=== PATIENT | female | born 2000 | race Caucasian/White ===

== ENCOUNTER 2024-06-01 04:31 | Inpatient (IN) | payer OTHER ==
[2024-06-01] MEDS ORDERED: CARBOPROST TROMETHAMINE 250 MCG/ML 1 ML AMP IM PRN (04:41)
[2024-06-01] MEDS ORDERED: TERBUTALINE 1 MG/ML VIAL SQ PRN (04:41)
[2024-06-01] MEDS ORDERED: LIDOCAINE 0.5% (PF) 5 MG/ML (50 ML SDV) SQ PRN (04:41)
[2024-06-01] MEDS ORDERED: miSOPROStoL 200 MCG TAB PO PRN (04:41)
[2024-06-01] MEDS ORDERED: TRANEXAMIC 1,000 MG/100ML-NACL 1,000 MG in EMPTY BAG 1 BAG IV PRN (04:41)
[2024-06-01] MEDS ORDERED: METHYLERGONOVINE 0.2 MG/ML 1 ML AMP IM PRN (04:41)
[2024-06-01] MEDS ORDERED: OXYTOCIN 10 UNIT/ML 1 ML VIAL IM PRN (04:41)
[2024-06-01] MEDS ORDERED: miSOPROStoL 200 MCG TAB RECTAL PRN (04:41)
[2024-06-01] MEDS ORDERED: OXYTOCIN 30 UNITS/500 ML NS 30 UNIT in SALINE 1 500ML.BAG IV SCH ×2 (04:45→06:45)
[2024-06-01] MEDS: LACTATED RINGERS 1,000 ML IV SCH (04:59)
[2024-06-01 05:10] LABS: Basophils % (A) 0 %; Eosinophils # (A) 0.2 k/uL (0-0.7); Eosinophils % (A) 1 %; HGB 11.9 gm/dL (11.4-16.0); Lymphocytes # (A) 1.9 k/uL (1.0-4.8); Lymphocytes % (A) 10 %; MCH 28.5 pg (25.0-35.0); MCHC 32.2 g/dL (31.0-37.0); MCV 88.6 fL (80.0-100.0); Mean Platelet Volume 7.4; Monocytes # (A) 0.7 k/uL (0-1.0); Monocytes % (A) 4 %; Neutrophils # (A) 15.5 k/uL (1.3-7.7); Neutrophils % (A) 84 %; Platelet Count 219 k/uL (150-450); RBC 4.17 m/uL (3.80-5.40); RDW 12.8 % (11.5-15.5); WBC 18.6 k/uL (3.8-10.6)
[2024-06-01] MEDS: CITRIC ACID-SODIUM CITRATE 15 ML CUP PO ONE (05:37)
--- NOTE | 2024-06-01 05:44 | P.HPOB ---
History of Present Illness H&P Date: 06/01/24 Chief Complaint: Labor 24 year old presents at 40 weeks 2 days in labor. She is marlen every 2 minutes and her cervix is 5/100/-2. heart tones are 135 with moderate variability. no accels, there are variable decelerations with each contraction down to the 70's. Category II FHT managed following algorithm including initiation of corrective measure oxygen, IV fluids, position changes. With the persistent presence of deep variable deceleratins, a patient-centered huddle was held and the need for an expedited deliver was discussed with the patient. It is our clinical recommendation to proceed with the delivery and after questions were answered to the patient agrees to proceed with the recommended plan. Review of Systems All systems: negative Constitutional: Denies chills, Denies fever Eyes: denies blurred vision, denies pain Ears, nose, mouth and throat: Denies headache, Denies sore throat Cardiovascular: Denies chest pain, Denies shortness of breath Respiratory: Denies cough Gastrointestinal: Denies abdominal pain, Denies diarrhea, Denies nausea, Denies vomiting Genitourinary: Denies dysuria, Denies hematuria Musculoskeletal: Denies myalgias Integumentary: Denies pruritus, Denies rash Neurological: Denies numbness, Denies weakness Psychiatric: Denies anxiety, Denies depression Endocrine: Denies fatigue, Denies weight change Past Medical History Past Medical History: No Reported History Additional Past Medical History / Comment(s): OB history: She has had one vaginal delivery. This is her second and the baby has some skeletal anomalies like bilateral clubbed feet, clindactaly, thickened skin on the skull Past Surgical History: No Surgical Hx Reported Past Psychological History: No Psychological Hx Reported Medications and Allergies Home Medications Medication Instructions Recorded Confirmed Type No Known Home Medications 06/01/24 06/01/24 History Allergies Allergy/AdvReac Type Severity Reaction Status Date / Time No Known Allergies Allergy Verified 06/01/24 04:40 Exam Osteopathic Statement: *. No significant issues noted on an osteopathic structural exam other than those noted in the History and Physical/Consult. Intake and Output 05/31/24 05/31/24 06/01/24 14:59 22:59 07:59 Other: Weight 60.781 kg Heart: Regular rate and rhythm Lungs: Clear to auscultation bilaterally Abdomen: Soft, nontender Extremities: Negative Homans sign Results Result Diagrams: 06/01/24 05:00 Abnormal Lab Results - Last 24 Hours (Table) 06/01/24 Range/Units 05:00 WBC 18.6 H (3.8-10.6) k/uL Neutrophils # 15.5 H (1.3-7.7) k/uL Assessment and Plan (1) 40 weeks gestation of Current Visit: Yes Status: Acute Code(s): Z3A.40 - 40 WEEKS GESTATION OF SNOMED Code(s): 01379336 (2) Category II heart rate tracing during maternal care in third trimester Current Visit: Yes Status: Acute Code(s): O36.8330 - MATERN CARE FOR ABNLT FETL HRT RATE OR RHYM, 3RD TRI, UNSP SNOMED Code(s): 391379984 Plan: 1. primary low transverse
[2024-06-01] MEDS ORDERED: NALBUPHINE (ANES) 10 MG/ML - 1 ML AMP ONE (05:55)
[2024-06-01] MEDS ORDERED: ONDANSETRON 4 MG/2 ML VIAL ONE (05:55)
[2024-06-01] MEDS ORDERED: OXYTOCIN 10 UNIT/ML 1 ML VIAL ONE (05:55)
[2024-06-01] MEDS ORDERED: MORPHINE SULFATE (PF) 0.3 MG/0.3 ML SYR ONE (05:55)
[2024-06-01] MEDS ORDERED: fentaNYL (PF) 50 MCG/ML 2 ML AMP ONE (05:55)
[2024-06-01] MEDS: OXYTOCIN 30 UNITS/500 ML NS 30 UNIT in SALINE 1 500ML.BAG IV SCH (06:41)
[2024-06-01] MEDS ORDERED: diphenhydrAMINE 25 MG CAP PO PRN (06:43)
[2024-06-01] MEDS ORDERED: diphenhydrAMINE 50 MG/ML 1 ML VIAL IVP PRN (06:43)
[2024-06-01] MEDS ORDERED: SIMETHICONE 80 MG CHEWABLE PO PRN (06:43)
[2024-06-01] MEDS ORDERED: NALOXONE 0.4 MG/ML 1 ML VIAL IV PRN (06:43)
[2024-06-01] MEDS ORDERED: ZOLPIDEM 5 MG TAB PO PRN (06:43)
[2024-06-01] MEDS ORDERED: ONDANSETRON 4 MG/2 ML VIAL IVP PRN (06:43)
[2024-06-01] MEDS ORDERED: LANOLIN CREAM 1 GM TUBE TOPICAL PRN (06:43)
[2024-06-01] MEDS ORDERED: diphenhydrAMINE 50 MG CAP PO PRN (06:43)
--- NOTE | 2024-06-01 06:52 | P.OP ---
Date of Procedure: 06/01/24 Preoperative Diagnosis: 1. at 40 weeks 2 days 2. labor 3. Category II heart tones 4. bilateral clubbed feet 5. skeletal anomalies of hands Postoperative Diagnosis: 1. at 40 weeks 2 days 2. labor 3. Category II heart tones 4. bilateral clubbed feet 5. skeletal anomalies of hands Procedure(s) Performed: primary low transverse Anesthesia: spinal Surgeon: Mohini Gaspar Rn Cvicu #1: Chela Rodrigez Estimated Blood Loss (ml): 300 IV fluids (ml): 1,000 Urine output (ml): 100 Pathology: other (placenta) Condition: stable Disposition: PACU Indications for Procedure: please see Dictated H&P for details on indications Operative Findings: male baby, apgars pending, weight pending, normal uterus, tubes and ovaries. Description of Procedure: Patient was taken to the operating room where spinal anesthesia was found be adequate. She was prepped and draped in normal sterile fashion in dorsal supine position with a leftward tilt. Pfannenstiel skin incision was made the scalpel and carried through to the underlying layer of fascia with the scalpel. Fascia was incised in midline and carried bilaterally with the Gilmore scissors. The superior aspect of the fascial incision was grasped with Bovey clamps elevated and the underlying rectus muscles dissected off with the Gilmore's. Attention was then turned to inferior aspect of same incision which in a similar fashion was grasped tented up and the underlying rectus muscles dissected off with the Gilmore's. The rectus muscles were the midline and the peritoneum was identified tented up and entered sharply with the scalpel. The incision was extended superiorly and inferiorly with good visualization of the bladder. The bladder blade was inserted and the vesicouterine peritoneum was incised the Metzenbaums then carried bilaterally and bladder flap created digitally. A low transverse incision was then made on the uterus with the scalpel. This was car ried bilaterally and digital manner. 's head delivered atraumatically, nose and mouth bulb suctioned, cord clamped and cut, infant handed off to waiting nurses. There was an odor to the fluid but it was clear. Apgars pending, weight pending. Placenta delivered manually, intact with three-vessel cord. The uterus is exteriorized and cleared of all clots and debris. The uterine incision was closed with 0 Vicryl in a running locked fashion. Second layer of the same sutures used in imbricating fashion to obtain excellent hemostasis. Both ovaries and tubes appeared normal. The uterus was placed back into the abdomen. The fascia was reapproximated using 0 Vicryl in a running fashion. The subcutaneous tissues closed with 3-0 Vicryl running fashion. The skin was closed brigid. Patient tolerated the procedure well, sponge and instrument counts were correct times 2 and she was taken to the recovery room in stable condition, baby taken to nursery for respiratory assistance and evaluation by behavioral health case manager.
[2024-06-01] MEDS: KETOROLAC 15 MG/ML 1 ML VIAL IVP SCH (08:10)
[2024-06-01] MEDS: ACETAMINOPHEN IV (For NPO) 1,000 MG in EMPTY BAG 1 BAG IVPB ONE (10:59)
[2024-06-01] MEDS: METOCLOPRAMIDE 5 MG/ML 2 ML VIAL IVP PRN (10:59)
[2024-06-01] MEDS: SENNOSIDES-DOCUSATE SODIUM 1 EACH TAB PO SCH (12:40)
[2024-06-01] MEDS: diphenhydrAMINE 50 MG/ML 1 ML VIAL IVP PRN (18:33)
[2024-06-01] MEDS: ACETAMINOPHEN TAB 500 MG TAB PO SCH (18:39)
[2024-06-02] MEDS: IBUPROFEN 800 MG TAB PO SCH (05:52)
[2024-06-02 07:28] LABS: Basophils % (A) 0 %; Eosinophils # (A) 0.1 k/uL (0-0.7); Eosinophils % (A) 1 %; HCT 30.4 % (34.0-46.0); Lymphocytes # (A) 1.8 k/uL (1.0-4.8); Lymphocytes % (A) 14 %; MCHC 32.3 g/dL (31.0-37.0); MCV 89.9 fL (80.0-100.0); Mean Platelet Volume 7.6; Monocytes # (A) 0.6 k/uL (0-1.0); Monocytes % (A) 4 %; Neutrophils # (A) 10.2 k/uL (1.3-7.7); Neutrophils % (A) 80 %; Platelet Count 188 k/uL (150-450); RBC 3.38 m/uL (3.80-5.40); WBC 12.7 k/uL (3.8-10.6)
[2024-06-02 07:33] LABS: HGB 9.8 gm/dL (11.4-16.0)
--- NOTE | 2024-06-02 08:44 | P.PNOBGPC ---
Subjective - Subjective Principal diagnosis: Status post primary low transverse postop day 1 Interval history: Seen and examined. Her pulse is lower and her white blood cell count is also lower. Afebrile. She denies nausea, vomiting, chest pain, shortness of breath or calf pain. Patient reports: Reports appetite normal, Reports voiding normally, Reports pain well controlled, Reports ambulating normally [place]: transported Objective - Vital Signs Latest vital signs: Vital Signs Temp Pulse Resp BP Pulse Ox 06/02/24 08:34 98.7 F 94 15 104/67 98 06/02/24 06:00 98.0 F 87 18 107/66 06/01/24 20:47 97.6 F 85 18 107/67 06/01/24 15:51 98.5 F 96 20 124/72 100 06/01/24 13:00 97.9 F 96 18 109/60 96 Intake and Output 06/01/24 06/02/24 06/02/24 22:59 06:59 14:59 Intake Total 370 500 Output Total 1100 1100 Balance -730 -600 Intake: Oral 370 500 Output: Urine 1100 1100 Straight 700 500 Uretheral (Rojas) 200 Other: # Voids 1 2 # Bowel Movements 1 - Exam Lungs: bilateral: normal Chest: Normal S1, Normal S2 Extremities: Present: normal Abdomen: Present: normal appearance, soft. Absent: distention, tenderness Incision: Present: normal, dry, intact Uterus: Present: normal, firm - Labs Labs: Abnormal Lab Results - Last 24 Hours (Table) 06/02/24 Range/Units 05:57 WBC 12.7 H (3.8-10.6) k/uL RBC 3.38 L (3.80-5.40) m/uL Hgb 9.8 L D (11.4-16.0) gm/dL Hct 30.4 L (34.0-46.0) % Neutrophils # 10.2 H (1.3-7.7) k/uL Assessment and Plan (1) 40 weeks gestation of Current Visit: Yes Status: Resolved Code(s): Z3A.40 - 40 WEEKS GESTATION OF SNOMED Code(s): 54098063 (2) Category II heart rate tracing during maternal care in third trimester Current Visit: Yes Status: Resolved Code(s): O36.8330 - MATERN CARE FOR ABNLT FETL HRT RATE OR RHYM, 3RD TRI, UNSP SNOMED Code(s): 314003473 (3) Status post primary low transverse section Current Visit: Yes Status: Acute Code(s): Z98.891 - HISTORY OF UTERINE SCAR FROM PREVIOUS SURGERY SNOMED Code(s): 712411481 Plan: 1. increase ambulatoin 2. reg diet 3. po pain meds
--- NOTE | 2024-06-02 17:14 | P.PN ---
Progress Note - Text Progress Note Date: 06/02/24 ([id number]) Anesthesia Postop day 1 Subjective: Status Post section with Duramorph. Patient seen and examined. Doing well without complaint. VAS 0. No nausea vomiting or pruritus. Denies fever. Gross lower extremity strength intact. Without apparent anesthetic complications. Objective: Vital signs reviewed Heart: Regular Rate Lungs: Good chest excursion Abdomen: Appears nondistended Assessment: Status post section with Duramorph postop day 1 Plan: 1. Continue current care with your medical management. Anticipated end to the duration of the Duramorph around surgery time today. You may see increased pain needs around this time. 2. This note was dictated using [employer] software. Please be advised there is a potential for misspellings or errors in welt rander.
--- NOTE | 2024-06-03 08:03 | P.DS ---
Providers Date of admission: 06/01/24 04:37 Expected date of discharge: 06/03/24 Attending physician: Mohini Gaspar Primary care physician: Stated None - Discharge Diagnosis(es) (1) 40 weeks gestation of Current Visit: Yes Status: Resolved (2) Category II heart rate tracing during maternal care in third trimester Current Visit: Yes Status: Resolved (3) Status post primary low transverse section Current Visit: Yes Status: Acute Hospital Course: Patient presented in labor. She underwent a primary low-transverse for category 2 heart tones. Postoperative course has been uneventful. She denies nausea, vomiting, chest pain, shortness of breath or calf pain. Baby was transferred to [facility]. Patient will be discharged home postoperative day #2 in stable condition to follow-up with me in 2 weeks. Plan - Discharge Summary New Discharge Prescriptions: New Cephalexin [Keflex] 500 mg PO Q6HR 5 Days #20 cap Ibuprofen [Motrin] 800 mg PO Q8HR #30 tab Discharge Medication List Cephalexin [Keflex] 500 mg PO Q6HR 5 Days #20 cap 06/03/24 [Rx] Ibuprofen [Motrin] 800 mg PO Q8HR #30 tab 06/03/24 [Rx] Follow up Appointment(s)/Referral(s): Mohini Gaspar DO [Doctor of Osteopathic Medicine] - 06/12/24 10:45 am (Post Appointment 07-14-2024 at 1:30pm) Discharge Disposition: HOME SELF-CARE
[2024-06-03 08:17] VITALS: BP 109/69; PULSE 76; RESP 16; TEMP 98.3
== END 2024-06-03 10:49 | disposition home or self-care (01) | DRG 540 ==
LOC: FBPOP 04:31 → 4FBP 04:37
PROVIDERS: ADMIT Obstetrics & Gynecology; ATTEND Obstetrics & Gynecology
PROC: 10D00Z1 Extraction of Products of Conception, Low, Open Approach (ICD-10-PCS; principal; 2024-06-01 06:00)
DX: O76 Abnormality in fetal heart rate and rhythm complicating labor and delivery (principal); O48.0 Post-term pregnancy; O35.HXX0 Maternal care for other (suspected) fetal abnormality and damage, fetal lower extremities anomalies, not applicable or unspecified; O35.8XX0 Maternal care for other (suspected) fetal abnormality and damage, not applicable or unspecified; O35.GXX0 Maternal care for other (suspected) fetal abnormality and damage, fetal upper extremities anomalies, not applicable or unspecified; Z3A.40 40 weeks gestation of pregnancy; Z37.0 Single live birth
CPT/HCPCS: 83605; 85025; 86850; 86900; 86901; 87040; 88307

== ENCOUNTER → 2024-07-03 | Outpatient (CLI) | payer OTHER ==
[2024-07-03 15:47] LABS: Hepatitis B Surface Antigen Nonreactive (Nonreactive); Hepatitis C IgG Antibody Nonreactive (Nonreactive)
[2024-07-03 16:39] LABS: HIV 2 AB Non-Reactive (Non-Reactive); HIV AB P24 Non-Reactive (Non-Reactive); HIV P24 AG Non-Reactive (Non-Reactive)
== END | disposition home or self-care (01) ==
LOC: LABWHC1 08:51
PROVIDERS: ATTEND Pediatrics Neonatal-Perinatal Medicine
DX: Z52.9 Donor of unspecified organ or tissue (principal)
CPT/HCPCS: 36415; 86780; 86790; 86803; 87340; 87390